=== PATIENT | female | born 1975 | race Caucasian/White ===

== ENCOUNTER → 2017-12-01 | Outpatient (CLI) | payer BC ==
--- NOTE | 2017-12-03 07:05 | MM ---
Reason for exam: screening (asymptomatic). Last mammogram was performed 1 year and 1 month ago. History: Family history of breast cancer in mother at age 59. Took hormonal contraceptives for 13 years. Physical Findings: A clinical breast exam by your physician is recommended on an annual basis and results should be correlated with mammographic findings. MG Screening Mammo w CAD Bilateral CC and MLO view(s) were taken. Prior study comparison: November 14, 2016, bilateral MG screening mammo w CAD. October 26, 2015, bilateral MG screening mammo w CAD. The breast tissue is heterogeneously dense. This may lower the sensitivity of mammography. No significant changes when compared with prior studies. ASSESSMENT: Benign, BI-RAD 2 RECOMMENDATION: Routine screening mammogram of both breasts in 1 year.
== END | disposition home or self-care (01) ==
LOC: RADMAMWWP 16:44
PROVIDERS: ATTEND Obstetrics & Gynecology
DX: Z12.31 Encounter for screening mammogram for malignant neoplasm of breast (principal)
CPT/HCPCS: 77067

== ENCOUNTER → 2018-12-04 | Outpatient (CLI) | payer BC ==
--- NOTE | 2018-12-04 09:47 | US ---
EXAMINATION TYPE: US transvaginal DATE OF EXAM: 12/04/2018 COMPARISON: NONE CLINICAL HISTORY: N92.0 FREQUENT MENSTRUATION. Excessive menstruation; 2 C section deliveries; ; discontinued oral contraceptives approximately 3 months ago TECHNIQUE: Transvaginal (TV) per order. Transabdominal sonographic images of the pelvis were acquir ed. Date of LMP: approximately 11/25/2018 EXAM MEASUREMENTS: Uterus: 7.1 x 4.7 x 4.4 cm Endometrial Stripe: 1.3 cm Right Ovary: 1.6 x 0.7 x 0.9 cm Left Ovary: 3.9 x 3.2 x 2.7 cm 1. Uterus: Anteverted, multiple Nabothian cysts in cervix with largest = 0.7 x 0.6 x 0.6cm; right my ometrial cyst = 0.4 x 0.3 x 0.3cm; hypoechoic and hyperechoic, oval area seen near right myometrial c yst =0.6 x 0.7 x 1.0cm. 2. Endometrium: irregular borders; upper endometrial cyst seen = 0.2 x 0.3 x 0.2cm 3. Right Ovary: small follicle seen, ovary located upper and laterally 4. Left Ovary: multiple follicles seen with largest complex (internal striations) = 1.6 x 2.6 x 2.1c m Color doppler imaging shows good arterial and venous flow within the ovaries; there is no evidence fo r ovarian torsion. 5. Bilateral Adnexa: wnl 6. Posterior cul-de-sac: wnl IMPRESSION: 1. Abnormally thickened endometrium with irregular borders. Considerations are for endometrial mass, endometrial polyp and endometrial hyperplasia. Direct visualization with sonohysterogram or endoscopy would be recommended. Additionally there is a heterogenous region of the anterior mid body myometriu m impressing on the endometrium. Considerations for this lesion are for leiomyoma, adenomyosis, or ex tension from an endometrial lesion. 2. Minimally complex left ovarian follicles likely involuting hemorrhagic cyst with a lacelike event marketing intern al echotexture.
== END | disposition home or self-care (01) ==
LOC: RADUSWWP 08:12
PROVIDERS: ATTEND Family Medicine
DX: N85.00 Endometrial hyperplasia, unspecified (principal); R93.89 Abnormal findings on diagnostic imaging of other specified body structures
CPT/HCPCS: 76830

== ENCOUNTER → 2018-12-28 | Outpatient (CLI) | payer BC ==
--- NOTE | 2018-12-30 12:05 | MM ---
Reason for exam: screening (asymptomatic). Last mammogram was performed 1 year and 1 month ago. History: Family history of breast cancer in mother at age 59. Took hormonal contraceptives for 13 years. Physical Findings: A clinical breast exam by your physician is recommended on an annual basis and results should be correlated with mammographic findings. MG Screening Mammo w CAD Bilateral CC and MLO view(s) were taken. Prior study comparison: December 01, 2017, bilateral MG screening mammo w CAD. November 14, 2016, bilateral MG screening mammo w CAD. The breast tissue is heterogeneously dense. This may lower the sensitivity of mammography. Focal asymmetry right upper MLO view, stable. No significant changes when compared with prior studies. ASSESSMENT: Benign, BI-RAD 2 RECOMMENDATION: Routine screening mammogram of both breasts in 1 year.
== END | disposition home or self-care (01) ==
LOC: RADMAMWWP 16:34
PROVIDERS: ATTEND Family Medicine
DX: Z12.31 Encounter for screening mammogram for malignant neoplasm of breast (principal)
CPT/HCPCS: 77067

== ENCOUNTER → 2019-01-21 | Outpatient (CLI) | payer BC ==
[2019-01-21 10:17] LABS: Basophils # (A) 0.1 k/uL (0-0.2); Basophils % (A) 1 %; Eosinophils # (A) 0.2 k/uL (0-0.7); Eosinophils % (A) 4 %; HCT 40.6 % (34.0-46.0); HGB 13.3 gm/dL (11.4-16.0); Lymphocytes # (A) 1.5 k/uL (1.0-4.8); Lymphocytes % (A) 29 %; MCH 32.4 pg (25.0-35.0); MCHC 32.8 g/dL (31.0-37.0); MCV 98.9 fL (80.0-100.0); Mean Platelet Volume 7.1; Monocytes # (A) 0.3 k/uL (0-1.0); Monocytes % (A) 6 %; Neutrophils # (A) 2.9 k/uL (1.3-7.7); Neutrophils % (A) 57 %; Platelet Count 271 k/uL (150-450); RBC 4.11 m/uL (3.80-5.40); RDW 12.5 % (11.5-15.5)
== END ==
LOC: LABPAT 09:08
PROVIDERS: ATTEND Obstetrics & Gynecology Obstetrics
DX: Z01.812 Encounter for preprocedural laboratory examination (principal); N92.0 Excessive and frequent menstruation with regular cycle; N94.6 Dysmenorrhea, unspecified
CPT/HCPCS: 36415; 85025

== ENCOUNTER 2019-02-02 06:32 | Day surgery (SDC) | payer BC ==
[2019-01-28 16:13] VITALS: BMI 27.8
--- NOTE | 2019-01-29 13:46 | P.HPIHPCON ---
History of Present Illness H&P Date: 01/29/19 Chief Complaint: menorrhagia This is a 43 yo that presents with c/o heavy menstrual bleeding. menses are regular q 28 days with a heavy flow that has gotten worse over the last 6 months. she notes dysmenorrhea with her menses in addition. she has tried management with ocps in the past but has been unable to remember to take them and desires EA. EMB done in the office, normal pathology, 8 cm uterus. Consent for Procedure: I have explained the operation/procedure to the patient, including the risks, benefits, side effects, alternative therapies (including not receiving the proposed treatment or service), the likelihood of the patient achieving his/her goals, and potential recuperation problems for the procedure/sedation/analgesia, as well as any blood products, if indicated. I also explained to the patient the risks, benefits and side effects of the alternatives, as well as the risks related to not receiving the proposed procedure, care, treatment, or services. - Constitutional Constitutional: Reports fatigue, Denies chills, Denies fever, Denies lethargy - EENT Ears, nose, mouth and throat: Denies headache - Cardiovascular Cardiovascular: Denies edema - Respiratory Respiratory: Denies cough, Denies dyspnea - Gastrointestinal Gastrointestinal: Denies constipation, Denies diarrhea, Denies nausea, Denies vomiting - Genitourinary (Female) Genitourinary: Reports Past Medical History Past Medical History: No Reported History Additional Past Medical History / Comment(s): VARICOSE VEINS. SEVERE DORCAS ENSTRUAL CRAMPS, HEAVY MENSES; FEELS BLOATED OCC. History of Any Multi-Drug Resistant Organisms: None Reported Past Surgical History: Section, Tubal Ligation Additional Past Surgical History / Comment(s): C-S X2. Deviated septum. Past Anesthesia/Blood Transfusion Reactions: No Reported Reaction Smoking Status: Current some day smoker - Past Family History Mother Family Medical History: Cancer Additional Family Medical History / Comment(s): METS BREAST CA Medications and Allergies Home Medications Medication Instructions Recorded Confirmed Type Acetaminophen [Tylenol 8 Hour] 650 mg PO DIRECTED PRN 01/28/19 01/28/19 History Allergies Allergy/AdvReac Type Severity Reaction Status Date / Time sulfamethoxazole Allergy Unknown Verified 01/28/19 15:46 [From Bactrim] trimethoprim [From Bactrim] Allergy Unknown Verified 01/28/19 15:46 Surgical - Exam Osteopathic Statement: *. No significant issues noted on an osteopathic structural exam other than those noted in the History and Physical/Consult. - General well developed, well nourished, no distress - Eyes PERRL - Neck no masses, trachea midline - Respiratory clear to auscultation - Cardiovascular Rhythm: regular - Abdomen Abdomen: non tender - Genitourinary uterus normal size and mobile normal external genitalia, normal perineum Assessment and Plan (1) Menorrhagia Status: Acute Code(s): N92.0 - EXCESSIVE AND FREQUENT MENSTRUATION WITH REGULAR CYCLE SNOMED Code(s): 576764278 (2) Dysmenorrhea Status: Acute Code(s): N94.6 - DYSMENORRHEA, UNSPECIFIED SNOMED Code(s): 719790232 Plan: will plan H LA EA. infomration given to pt and all questions answered. procedure is reviewed along with risks of surgery including but not limited to infection bleeding uterine perforation and possible need for hsyterecotmy in the future due to failure of this procedure. informed consnet obtained.
[~2019-02-02 06:32] MED LIST: DEXAMETHASONE SOD PHOSPHATE 10 MG/ML 1 ML VIAL IV ONE; LACTATED RINGERS 1,000 ML IV SCH; ONDANSETRON 4 MG/2 ML VIAL IVP ONE; Pre Op ABX Message 1 EACH MISC MISCELLANE ONE
[2019-02-02] MEDS ORDERED: LIDOCAINE 1% 20 ML VIAL (10MG/ML) FOR IV START INTRADERMA ONE (06:58)
[2019-02-02] MEDS ORDERED: PROPOFOL 10 MG/ML 20 ML VIAL IV ONE (07:34)
[2019-02-02] MEDS ORDERED: LIDOCAINE 1% INJ 10MG/ML (20 ML MDV) ONE (07:34)
[2019-02-02] MEDS ORDERED: fentaNYL (PF) 50 MCG/ML 2 ML AMP ONE (07:34)
[2019-02-02] MEDS ORDERED: MIDAZOLAM 2 MG/2 ML VIAL ONE (07:34)
[2019-02-02] MEDS ORDERED: KETOROLAC 30 MG/ML 1 ML VIAL ONE (07:34)
--- NOTE | 2019-02-02 08:05 | P.OP ---
Date of Procedure: 02/02/19 Preoperative Diagnosis: Menorrhagia, dysmenorrhea Postoperative Diagnosis: Same Procedure(s) Performed: Hysteroscopy, dilation and curettage, endometrial ablation Anesthesia: MAC Surgeon: Inez Giles Estimated Blood Loss (ml): 5 IV fluids (ml): 500 Urine output (ml): 50 Pathology: other (Endometrial curettings) Condition: stable Disposition: PACU Indications for Procedure: Heavy menstrual bleeding Operative Findings: Normal endometrial cavity Description of Procedure: Patient was seen in the preoperative suite and procedure was reviewed questions were answered and patient wished to proceed. Patient was taken operating suite where general anesthesia was obtained without difficulty by the anesthesia department. She was prepped and draped in normal sterile fashion in the dorsal lithotomy position. A Dickinson catheter was then used to drain the bladder of approximately 50 mL of a weighted speculum posterior vaginal vault the interval cervix is visualized and grasped with a single-tooth tenaculum. Endocervical canal was then dilated to 15-Lao hysteroscope was placed through the cervix and toward the endometrial cavity and normal cavity was appreciated. Pictures were taken and the hysteroscope was removed. A sharp curettage was then performed until gritty texture was noted in all 4 quadrants of the endometrial cavity. This was then sent to pathology for analysis. At this time the NovaSure device was opened and set to the appropriate measurements uterine length of 4 with a 3.1 once the device passed the cavity assessment was allowed to cycle for a total time of 97 seconds with a power of 68. Afterwards the device was removed without difficulty the single-tooth tenaculum was taken off of the anterior lip of the cervix hemostasis was appreciated. All counts were correct 2 patient tolerated procedure well and was taken to the recovery room awake and in stable condition
[2019-02-02 08:10] VITALS: TEMP 97.6
[2019-02-02 08:22] VITALS: RESP 16
[2019-02-02] MEDS: HYDROmorphone 0.5 MG/0.5 ML SYRINGE IVP PRN ×2 (08:22→08:40)
[2019-02-02 09:22] VITALS: BP 124/83; PULSE 81
== END 2019-02-02 09:37 | disposition home or self-care (01) ==
LOC: OR 06:32
PROVIDERS: ATTEND Obstetrics & Gynecology Obstetrics
DX: N92.0 Excessive and frequent menstruation with regular cycle (principal); N94.6 Dysmenorrhea, unspecified; F17.200 Nicotine dependence, unspecified, uncomplicated; I83.90 Asymptomatic varicose veins of unspecified lower extremity; K21.9 Gastro-esophageal reflux disease without esophagitis; Z80.3 Family history of malignant neoplasm of breast; Z88.2 Allergy status to sulfonamides
CPT/HCPCS: 81025; 88305; 58563; J2250; J1100; J2405; J2001; J3010; J1885; J2704; J1170

== ENCOUNTER → 2019-12-31 | Outpatient (CLI) | payer BC ==
--- NOTE | 2020-01-03 09:24 | MM ---
Reason for exam: screening (asymptomatic). Last mammogram was performed 1 year ago. History: Family history of breast cancer in mother at age 59. Took hormonal contraceptives for 13 years. Physical Findings: A clinical breast exam by your physician is recommended on an annual basis and results should be correlated with mammographic findings. MG Screening Mammo w CAD Bilateral CC and MLO view(s) were taken. XCCL view(s) were taken of the right breast. Prior study comparison: December 28, 2018, bilateral MG screening mammo w CAD. December 01, 2017, bilateral MG screening mammo w CAD. The breast tissue is heterogeneously dense. This may lower the sensitivity of mammography. No suspicious abnormality. No significant changes when compared with prior studies. ASSESSMENT: Negative, BI-RAD 1 RECOMMENDATION: Routine screening mammogram of both breasts in 1 year.
== END | disposition home or self-care (01) ==
LOC: RADMAMWWP 09:56
PROVIDERS: ATTEND Obstetrics & Gynecology Obstetrics
DX: Z12.31 Encounter for screening mammogram for malignant neoplasm of breast (principal)
CPT/HCPCS: 77067

== ENCOUNTER → 2020-08-01 | Outpatient (CLI) | payer BC ==
[2020-08-01 08:39] LABS: Basophils # (A) 0.1 k/uL (0-0.2); Basophils % (A) 2 %; Eosinophils # (A) 0.2 k/uL (0-0.7); Eosinophils % (A) 3 %; HCT 40.3 % (34.0-46.0); HGB 13.2 gm/dL (11.4-16.0); Lymphocytes # (A) 1.8 k/uL (1.0-4.8); Lymphocytes % (A) 27 %; MCH 33.4 pg (25.0-35.0); MCHC 32.8 g/dL (31.0-37.0); MCV 101.8 fL (80.0-100.0); Macrocytosis Slight; Mean Platelet Volume 7.2; Monocytes # (A) 0.3 k/uL (0-1.0); Monocytes % (A) 4 %; Neutrophils # (A) 4.2 k/uL (1.3-7.7); Neutrophils % (A) 62 %; Platelet Count 294 k/uL (150-450); RBC 3.96 m/uL (3.80-5.40); RDW 12.7 % (11.5-15.5); WBC 6.7 k/uL (3.8-10.6)
[2020-08-01 08:53] LABS: African American GFR (CKD) >90 (>60 ml/min/1.73 sqM); Anion Gap 8 mmol/L; Blood Urea Nitrogen 19 mg/dL (7-17); Carbon Dioxide 26 mmol/L (22-30); Chloride 105 mmol/L (98-107); Glucose 80 mg/dL (74-99); Non-African American GFR(CKD) 84 (>60 ml/min/1.73 sqM); Potassium 4.6 mmol/L (3.5-5.1); Sodium 139 mmol/L (137-145)
== END | disposition home or self-care (01) ==
LOC: LABPAT 07:38
PROVIDERS: ATTEND Obstetrics & Gynecology Obstetrics
DX: Z01.818 Encounter for other preprocedural examination (principal); N94.6 Dysmenorrhea, unspecified
CPT/HCPCS: 36415; 80051; 82565; 82947; 84520; 85025; 86850; 86900; 86901; 87086

== ENCOUNTER 2020-08-07 07:23 | Day surgery (SDC) | payer BC ==
[2020-08-02 11:00] VITALS: BMI 28.3
--- NOTE | 2020-08-03 12:58 | HP ---
HISTORY AND PHYSICAL DATE OF SURGERY: 08/07/2020 HISTORY OF PRESENT ILLNESS: This is a pleasant 44-year-old 2, para 2-0-0-2 that presents with complaints of increasing pelvic pain and cramping, status post endometrial ablation. The patient states her menstrual cycles have been blight since the endometrial ablation, but she has noted increased cramping. Her menstrual cycles do occur every 28-30 days, lasting 1- 2 days and are light without clots. She does experience dysmenorrhea throughout her cycle. The patient did have an ultrasound completed here in the office which revealed a normal uterine size and findings of hematometra, endometrial polyp. Normal adnexa were appreciated. PAST MEDICAL HISTORY: Significant for obesity and menorrhagia. The patient does have a history of chronic UTIs. PAST SURGICAL HISTORY: Significant for a , deviated septum repair. ALLERGIES: Allergic to BACTRIM. FAMILY MEDICAL HISTORY: Noncontributory. REPRODUCTIVE HISTORY: She is a 2, para 2, as stated above. She has had a tubal ligation in the past. The patient is a current smoker with occasional alcohol use. REVIEW OF SYSTEMS: She denies fevers, chills, nausea, vomiting. Denies urinary urgency or incontinence. She denies menorrhagia, she does admit to dysmenorrhea, worsening since endometrial ablation was completed. Vital signs were noted to be stable. PHYSICAL EXAM: She is a well-nourished, well-developed, alert female in no acute distress, breathing is noted to be nonlabored, heart has a regular rate and rhythm. Her abdomen is soft and nontender. Genitourinary: Her external genitalia is normal for age with no inflammatory lesions present. Vaginal tissues noted to be pink and well rugated with no masses, bladder is nontender, urethral meatus is normal in nature, cervix appears healthy with no lesions and is nontender. Uterus is nontender to palpation. It is midline and mobile, no adnexal masses are appreciated. ASSESSMENT: 1. Failed endometrial ablation. 2. Hematometra, pelvic pain, dysmenorrhea. PLAN: Is robotic assisted vaginal hysterectomy with ovarian conservation, diagnostic cystoscopy. Possible BSO should that be deemed necessary during the procedure. Patient is counseled on risks of surgery including, but not limited to infection, bleeding, damage to bladder, bowel, ureteric injury. The patient states understanding of these risks and wishes to proceed. Patient was given an ACOG pamphlet to review and denied questions. Patient wishes to proceed with surgery. MMODL / IJN: [id number] /
[~2020-08-07 07:23] MED LIST changes: +HYDROmorphone 0.5 MG/0.5 ML SYRINGE IVP PRN; -LACTATED RINGERS 1,000 ML IV SCH; -Pre Op ABX Message 1 EACH MISC MISCELLANE ONE
[2020-08-07] MEDS: LACTATED RINGERS 1,000 ML IV SCH ×2 (08:10→19:54)
[2020-08-07] MEDS ORDERED: LIDOCAINE 1% (10MG/ML) FOR IV START INTRADERMA ONE (08:10)
[2020-08-07] MEDS ORDERED: fentaNYL (PF) 50 MCG/ML 2 ML AMP ONE (08:52)
[2020-08-07] MEDS ORDERED: PROPOFOL 10 MG/ML 20 ML VIAL IV ONE (08:52)
[2020-08-07] MEDS ORDERED: LIDOCAINE 1% INJ 10MG/ML (20 ML MDV) ONE (08:52)
[2020-08-07] MEDS ORDERED: GLYCOPYRROLATE 0.2 MG/ML 2 ML VIAL ONE (08:52)
[2020-08-07] MEDS ORDERED: ROCURONIUM BROMIDE 10 MG/ML 5 ML VIAL IV ONE (08:52)
[2020-08-07] MEDS ORDERED: KETOROLAC 15 MG/ML 1 ML VIAL ONE (08:52)
[2020-08-07] MEDS ORDERED: NEOSTIGMINE 1 MG/ML 10 ML VIAL ONE (08:52)
[2020-08-07] MEDS ORDERED: MIDAZOLAM 2 MG/2 ML VIAL ONE (08:52)
[2020-08-07] MEDS ORDERED: SUCCINYLCHOLINE CHLORIDE 100 MG/5 ML SYR IV ONE (08:52)
[2020-08-07] MEDS ORDERED: BUPIVACAINE (PF) 0.25% 30 ML VIAL SQ ONE ×2 (08:59→10:32)
[2020-08-07] MEDS ORDERED: LACTATED RINGERS 1,000 ML IV ONE (09:40)
[2020-08-07] MEDS ORDERED: SIMETHICONE 80 MG CHEWABLE PO PRN (10:28)
[2020-08-07] MEDS ORDERED: Acetaminophen-Codeine 300-30mg TAB PO PRN (10:28)
[2020-08-07] MEDS ORDERED: ACETAMINOPHEN IV (For NPO) 1,000 MG in EMPTY BAG 1 BAG IVPB STA (10:31)
--- NOTE | 2020-08-07 10:37 | P.OP ---
Date of Procedure: 08/07/20 Preoperative Diagnosis: Menometrorrhagia Pelvic pain Dysmenorrhea Failed endometrial ablation Postoperative Diagnosis: same Procedure(s) Performed: Robotic-assisted vaginal hysterectomy, bilateral salpingectomy, diagnostic cystoscopy Anesthesia: ISABELLA Surgeon: Inez Giles Family Service Aide #1: Miko Taylor Estimated Blood Loss (ml): 25 IV fluids (ml): 800 Urine output (ml): 50 Pathology: other (Uterus cervix bilateral fallopian tubes) Condition: stable Disposition: PACU Indications for Procedure: This 44-year-old 2 para 2 presented with increasing pain status post endometrial ablation. Patient states the pain is cyclic in nature. Ultrasound was performed with diagnosis of menometrorrhagia options were reviewed patient elected definitive treatment with hysterectomy. Operative Findings: Globular uterus normal ovaries bilaterally. Normal pelvic anatomy Description of Procedure: Patient is taken back to the operating suite and general anesthesia was obtained without difficulty by the anesthesia department. She is prepped and draped in the normal sterile fashion in the dorsal lithotomy position. A Batista catheter was then placed under sterile technique. A weighted speculum was placed in the posterior vaginal vault, the anterior lip of the cervix is visualized and grasped with a single-tooth tenaculum. The endocervical canal was then dilated and V care uterine manipulator was advanced into the uterus as a means to manipulate the uterus throughout the procedure. All inserts were then removed from the vaginal vault after the cervical cap was placed snugly against the cervix. Attention was then turned the patient's abdomen where approximately 2 finger breaths above the umbilicus a small skin incision is made. Through this incision the Veress needle is placed. Once the Veress needle was deemed to be in the proper position with a drop of CO2 pressure CO2 insufflation was allowed to occur. At this time an 8 mm trocar and sleeve is placed under direct visualization. The additional port sites are then placed at the usual sites at 10 cm lateral and 3 cm inferior to midline port these are 8 mm ports and operative reports through the da Bri. In the left upper quadrant a 12 mm trocar and sleeve is placed under direct visualization. The da Bri robot is undocked in usual fashion. The operative arms are then placed. In the right operative arm the monopolar scissors is placed in the left operative arm the bipolar forceps is placed. Attention then turned to the patient's left fallopian tube which was grasped coagulated and transected. This continued toward the uterine ovarian ligament. The uterine ovarian ligament was coagulated distally and proximal plane divided. This continued through the broad and toward the round. The round ligament was coagulated distally and proximally divided. The bladder flap from the left was then created using sharp and blunt dissection. Attention was then turned to the right fallopian tube which was grasped, elevated and coagulated. This was transected hemostasis was appreciated. This continued through the uterine ovarian ligament uterine ovarian ligament was then visualized coagulated distally proximal plane divided this was then continued through the broad. The round ligament was then visualized thank regular distally and proximally and divided. The bladder flap from the right was then created using sharp and blunt dissection. At this time a Ray-Nahun was introduced into the abdomen to further dissect the bladder bluntly away from the operating field. Ray-Nahun was then removed. At this time the descending branch the uterine artery from the right was visualized coagulated distally proximal plane divided. This was then repeated on the left. Hemostasis was appreciated. At this time the only remaining attachment was a vaginal attachment therefore colpotomy incision was made in circumferential fashion. The uterus and bilateral fallopian tubes of then delivered through the vaginal opening. The pelvis was then copiously irrigated. The vaginal cuff was then closed with 0 Vicryl in a [id number] fashion 4. Hemostasis was appreciated. At this time all inserts were removed and attention was then turned the patient's Batista catheter. The Batista catheter was removed without difficulty and a cystoscopy was performed. The cystoscope through the urethra and toward the bladder bladder bubbles noted a complete survey of the bladder revealed normal mucosa. Both ureteral orifices were noted to be spilling clear yellow urine. The cys toscopy fluid and cystoscope are removed. The Batista catheter was replaced. Attention was then turned the patient's abdomen where the epidural but had been undocked and instruments removed. The skin incisions were closed with 4-0 Vicryl in a subarticular fashion. Steri-Strips and sterile dressings were applied as needed. All counts were noted to be correct 2, patient tolerated procedure well.
[2020-08-07] MEDS: Acetaminophen-Codeine 300-30mg TAB PO PRN ×2 (16:32→22:35)
[2020-08-07] MEDS: IBUPROFEN 600 MG TAB PO PRN (19:41)
[2020-08-07] MEDS: SENNOSIDES-DOCUSATE SODIUM 1 EACH TAB PO SCH (19:45)
[2020-08-08] MEDS: IBUPROFEN 600 MG TAB PO PRN (02:28)
[2020-08-08] MEDS: Acetaminophen-Codeine 300-30mg TAB PO PRN (07:40)
[2020-08-08] MEDS: SENNOSIDES-DOCUSATE SODIUM 1 EACH TAB PO SCH (07:41)
[2020-08-08 07:56] VITALS: BP 101/61; PULSE 89; RESP 16; TEMP 97.7
[2020-08-08 08:07] LABS: Basophils % (A) 1 %; Eosinophils # (A) 0.1 k/uL (0-0.7); Eosinophils % (A) 1 %; HCT 36.5 % (34.0-46.0); HGB 11.9 gm/dL (11.4-16.0); Lymphocytes # (A) 1.5 k/uL (1.0-4.8); Lymphocytes % (A) 18 %; MCH 33.6 pg (25.0-35.0); MCHC 32.6 g/dL (31.0-37.0); MCV 103.1 fL (80.0-100.0); Macrocytosis Slight; Mean Platelet Volume 7.8; Monocytes # (A) 0.3 k/uL (0-1.0); Monocytes % (A) 3 %; Neutrophils # (A) 6.5 k/uL (1.3-7.7); Neutrophils % (A) 77 %; Platelet Count 267 k/uL (150-450); RBC 3.54 m/uL (3.80-5.40); RDW 12.6 % (11.5-15.5); WBC 8.4 k/uL (3.8-10.6)
--- NOTE | 2020-08-08 08:21 | P.DS ---
Providers Date of admission: 08/07/2020 Expected date of discharge: 08/08/20 Attending physician: Inez Giles Primary care physician: Ranjith Barnes - Discharge Diagnosis(es) (1) Hematometra Current Visit: Yes Status: Acute (2) Pelvic pain Current Visit: Yes Status: Acute (3) Dysmenorrhea Current Visit: No Status: Acute Hospital Course: this is a 44-year-old 2 para 2 that presented to the hospital yesterday and 08/07 for scheduled robotic cyst vaginal hysterectomy secondary to failed ablation, hematometra, pelvic pain and dysmenorrhea. Patient was counseled on risks to surgery prior to surgery including but limited to infection, bleeding, damage to bladder, bowel, ureteric injury. Patient history of 2 prior C- sections therefore special counseling was given regarding bladder injury. patient was taken back to the operating room and surgery was completed without difficulty. For further details on the procedure please see the operative report. Patient's postoperative course has been uneventful. On this postoperative day #1 she is ambulating and voiding without difficulty. She is tolerating a regular diet without nausea or vomiting. She denies vaginal bleeding. She states her pain is well-controlled with oral ibuprofen and Tylenol No. 3. Patient Condition at Discharge: Good Plan - Discharge Summary Discharge Rx Participant: No New Discharge Prescriptions: No Action No Known Home Medications Discharge Medication List No Known Home Medications 08/02/20 [History] Follow up Appointment(s)/Referral(s): Inez Giles DO [Doctor of Osteopathic Medicine] - 2 Weeks Patient Instructions/Handouts: Laparoscopic Hysterectomy (DC), Laparoscopic Hysterectomy (GEN), Hysterectomy (GEN) Activity/Diet/Wound Care/Special Instructions: vaginal bleeding, spotting occur after hysterectomy. Patient states understanding. Patient is to continue with [id number] ibuprofen 600 mg as needed, and Tylenol No. 3 for breakthrough pain. Patient is counseled on the need for stool softeners in addition, 2 senna/S at bedtime. Discharge Disposition: HOME SELF-CARE
== END 2020-08-08 10:45 | disposition home or self-care (01) ==
LOC: OR 07:23 → 4FBP 10:42 → OR 08-08 10:45
PROVIDERS: ATTEND Obstetrics & Gynecology Obstetrics
DX: N80.0 Endometriosis of uterus (principal); E66.9 Obesity, unspecified; Z88.2 Allergy status to sulfonamides; Z87.440 Personal history of urinary (tract) infections; Z98.51 Tubal ligation status; Z98.890 Other specified postprocedural states; Z68.28 Body mass index [BMI] 28.0-28.9, adult
CPT/HCPCS: 58571; 81025; 85025; 88307; J2250; J1100; J2710; J0690; J2405; J2001; J3010; J0131; J1885; J0330; J2704; J1170; 86850; 86900; 86901

== ENCOUNTER → 2021-03-30 | Outpatient (CLI) | payer BC ==
--- NOTE | 2021-04-02 10:18 | MM ---
Reason for exam: screening (asymptomatic). Last mammogram was performed 1 year and 3 months ago. History: Family history of breast cancer in mother at age 59. Took hormonal contraceptives for 13 years. Physical Findings: A clinical breast exam by your physician is recommended on an annual basis and results should be correlated with mammographic findings. MG 3D Screening Mammo W/Cad Bilateral CC and MLO view(s) were taken. Prior study comparison: December 31, 2019, bilateral MG screening mammo w CAD. December 28, 2018, bilateral MG screening mammo w CAD. The breast tissue is heterogeneously dense. This may lower the sensitivity of mammography. No significant changes when compared with prior studies. ASSESSMENT: Benign, BI-RAD 2 RECOMMENDATION: Routine screening mammogram of both breasts in 1 year.
== END | disposition home or self-care (01) ==
LOC: RADMAMWWP 11:54
PROVIDERS: ATTEND Obstetrics & Gynecology Obstetrics
DX: Z12.31 Encounter for screening mammogram for malignant neoplasm of breast (principal); Z80.3 Family history of malignant neoplasm of breast
CPT/HCPCS: 77063; 77067

== ENCOUNTER → 2022-04-03 | Outpatient (CLI) | payer BC ==
--- NOTE | 2022-04-05 12:59 | MM ---
Reason for exam: screening (asymptomatic). Last mammogram was performed 1 year ago. History: Family history of breast cancer in mother at age 59. Took hormonal contraceptives for 13 years. Physical Findings: A clinical breast exam by your physician is recommended on an annual basis and results should be correlated with mammographic findings. MG 3D Screening Mammo W/Cad Bilateral CC and MLO view(s) were taken. Prior study comparison: March 30, 2021, bilateral MG 3d screening mammo w/cad. December 31, 2019, bilateral MG screening mammo w CAD. The breast tissue is heterogeneously dense. This may lower the sensitivity of mammography. Lobulated central asymmetric density left MLO view. ASSESSMENT: Incomplete: need additional imaging evaluation, BI-RAD 0 RECOMMENDATION: Special view mammogram of the left breast. (3D) If lesion persists on supplemental views, image directed ultrasound is recommended. [facility] will attempt to contact patient to return for supplemental views and ultrasound if indicated.
== END | disposition home or self-care (01) ==
LOC: RADMAMWWP 16:55
PROVIDERS: ATTEND Family Medicine
DX: Z12.31 Encounter for screening mammogram for malignant neoplasm of breast (principal)
CPT/HCPCS: 77063; 77067

== ENCOUNTER → 2022-04-10 | Outpatient (CLI) | payer BC ==
--- NOTE | 2022-04-10 09:37 | MM ---
Reason for Exam: Follow-up at short interval from prior study. Last screening mammogram was performed less than 1 month ago. Patient History: Menarche at age 12. First Full-Term at age 27. Hysterectomy at age 44. Patient used Hormonal Contraceptives for 13 years. Currently . Mother had breast cancer, age 59. Risk Values: Belkis 5 year model risk: 1.8%. NCI Lifetime model risk: 19.6%. Film Views: Left spot compression CC views were taken. Left spot compression MLO views were taken. Left spot compression MLONIP views were taken. Left LM views were taken. Prior Study Comparison: 12/31/2019 Bilateral Screening Mammogram, [facility]. 03/30/2021 Bilateral Screening Mammogram, [facility]. 04/03/2022 Bilateral Screening Mammogram, [facility]. Tissue Density: Left: The breast tissue is heterogeneously dense. This may lower the sensitivity of mammography. Findings: Analyzed By CAD. On compression no persistent nodularity is evident. No suspicious spiculated or lobular masses evident. Overall Assessment: Probably benign, BI-RAD 3 Management: Diagnostic Mammogram of both breasts in 6 months. A clinical breast exam by your physician is recommended on an annual basis and results should be correlated with mammographic findings. This exam should not preclude additional follow-up of suspicious palpable abnormalities. Results were given to the patient verbally at the time of exam.
== END | disposition home or self-care (01) ==
LOC: RADMAMWWP 09:00
PROVIDERS: ATTEND Family Medicine
DX: R92.8 Other abnormal and inconclusive findings on diagnostic imaging of breast (principal)
CPT/HCPCS: 77061; 77065

== ENCOUNTER → 2022-10-14 | Outpatient (CLI) | payer BC ==
--- NOTE | 2022-10-14 08:27 | MM ---
Reason for Exam: Follow-up at short interval from prior study. Last screening mammogram was performed 6 month(s) ago. Patient History: Menarche at age 12. First Full-Term at age 27. Hysterectomy at age 44. Perimenopausal. Patient used Hormonal Contraceptives for 13 years. Mother had breast cancer, age 59. Risk Values: Belkis 5 year model risk: 1.8%. NCI Lifetime model risk: 19.3%. Prior Study Comparison: 12/01/2017 Bilateral Screening Mammogram, [facility]. 12/28/2018 Bilateral Screening Mammogram, [facility]. 12/31/2019 Bilateral Screening Mammogram, [facility]. 03/30/2021 Bilateral Screening Mammogram, [facility]. 04/03/2022 Bilateral Screening Mammogram, [facility]. 04/10/2022 Left MG 3D work up w/cad LT, [facility]. Tissue Density: The breast tissue is heterogeneously dense. This may lower the sensitivity of mammography. Findings: Analyzed By CAD. Asymmetric density upper right MLO view persists on spot compression imaging. Ultrasound is recommended. No suspicious calcifications are seen within either breast. Overall Assessment: Incomplete: need additional imaging evaluation, BI-RAD 0 Management: Diagnostic Breast Ultrasound of the right breast. A clinical breast exam by your physician is recommended on an annual basis and results should be correlated with mammographic findings. This exam should not preclude additional follow-up of suspicious palpable abnormalities. Results were given to the patient verbally at the time of exam. Electronically signed and approved by: Dusty Cooper M.D. Radiologis
--- NOTE | 2022-10-14 08:31 | USB ---
Patient History: Menarche at age 12. First Full-Term at age 27. Hysterectomy at age 44. Perimenopausal. Patient used Hormonal Contraceptives for 13 years. Mother had breast cancer, age 59. Risk Values: Belkis 5 year model risk: 1.8%. NCI Lifetime model risk: 19.3%. Technique: Method: Targeted. Prior Study Comparison: 03/30/2021 Bilateral Screening Mammogram, [facility]. 04/03/2022 Bilateral Screening Mammogram, [facility]. 04/10/2022 Left MG 3D work up w/cad LT, [facility]. Findings: The upper outer quadrant of the right breast, the upper inner quadrant of the right breast, the axilla of the right breast and the retroareolar of the right breast were scanned. No solid mass identified. Small cyst cluster noted at the 11:00 position measuring 4 mm. Overall Assessment: Probably benign, BI-RAD 3 Management: Diagnostic Mammogram of the right breast in 6 months. A clinical breast exam by your physician is recommended on an annual basis and results should be correlated with mammographic findings. This exam should not preclude additional follow-up of suspicious palpable abnormalities. Results were given to the patient verbally at the time of exam. Electronically signed and approved by: Dusty Cooper M.D. Radiologis
== END | disposition home or self-care (01) ==
LOC: RADMAMWWP 07:05
PROVIDERS: ATTEND Family Medicine
DX: R92.8 Other abnormal and inconclusive findings on diagnostic imaging of breast (principal); Z80.3 Family history of malignant neoplasm of breast
CPT/HCPCS: 77062; 77066

== ENCOUNTER → 2023-04-16 | Outpatient (CLI) | payer BC ==
--- NOTE | 2023-04-16 09:14 | MM ---
Reason for Exam: Follow-up at short interval from prior study. Last screening mammogram was performed 12 month(s) ago. Patient History: Menarche at age 12. First Full-Term at age 27. Hysterectomy at age 44. Perimenopausal. Patient used Hormonal Contraceptives for 13 years. Mother had breast cancer, age 59. Risk Values: Belkis 5 year model risk: 1.8%. NCI Lifetime model risk: 19.3%. Prior Study Comparison: 12/01/2017 Bilateral Screening Mammogram, [facility]. 12/28/2018 Bilateral Screening Mammogram, [facility]. 12/31/2019 Bilateral Screening Mammogram, [facility]. 03/30/2021 Bilateral Screening Mammogram, [facility]. 04/03/2022 Bilateral Screening Mammogram, [facility]. 04/10/2022 Left MG 3D work up w/cad LT, [facility]. 10/14/2022 Bilateral MG 3D diag mammo w/cad [facility], [facility]. Tissue Density: The breast tissue is heterogeneously dense. This may lower the sensitivity of mammography. Findings: Analyzed By CAD. Stable appearing right breast focal asymmetry likely representing clustered cysts seen on ultrasound. No new suspicious masses, calcifications or distortions. Overall Assessment: Benign, BI-RAD 2 Management: Screening Mammogram of both breasts in 1 year. Results were given to the patient verbally at the time of exam. Patient should continue monthly self-breast exams. A clinical breast exam by your physician is recommended on an annual basis. This exam should not preclude additional follow-up of suspicious palpable abnormalities. Note on Belkis scores and lifetime risk: 1. A Belkis score greater than 3% is considered moderate risk. If this is the case, consider specialist referral to assess eligibility for a risk reducing agent. 2. If overall lifetime risk for the development of breast cancer is 20% or higher, the patient may qualify for future screening with alternating mammogram and breast MRI. Electronically signed and approved by: Josiah Monte DO
== END | disposition home or self-care (01) ==
LOC: RADMAMWWP 08:22
PROVIDERS: ATTEND Family Medicine
DX: R92.0 Mammographic microcalcification found on diagnostic imaging of breast (principal); Z80.3 Family history of malignant neoplasm of breast
CPT/HCPCS: 77062; 77066

== ENCOUNTER 2023-10-21 10:44 | Day surgery (SDC) | payer BC ==
[2023-10-15 16:09] VITALS: BMI 24.1
[~2023-10-21 10:44] MED LIST changes: -DEXAMETHASONE SOD PHOSPHATE 10 MG/ML 1 ML VIAL IV ONE; -HYDROmorphone 0.5 MG/0.5 ML SYRINGE IVP PRN; +LACTATED RINGERS 1,000 ML IV SCH; -ONDANSETRON 4 MG/2 ML VIAL IVP ONE
[2023-10-21] MEDS ORDERED: LIDOCAINE 1% (10MG/ML) FOR IV START INTRADERMA ONE (11:31)
[2023-10-21 11:34] VITALS: TEMP 97.6
[2023-10-21] MEDS ORDERED: PROPOFOL 10 MG/ML 20 ML VIAL IV ONE (12:20)
--- NOTE | 2023-10-21 12:30 | P.PCN ---
Date of Procedure: 10/21/23 Procedure(s) Performed: BRIEF HISTORY: Patient is a 48-year-old pleasant white female scheduled for an elective colonoscopy as a part of screening for colon cancer. PROCEDURE PERFORMED: Colonoscopy. PREOPERATIVE DIAGNOSIS: Screening for colon cancer. IV sedation per Anesthesia. PROCEDURE: After informed consent was obtained, the patient, was brought into the endoscopy unit. IV sedation was administered by Anesthesia under continuous monitoring. Digital rectal examination was normal. Initially the Olympus CF-160 flexible video colonoscope was then inserted in the rectum, gradually advanced into the cecum without any difficulty. Careful examination was performed as the scope was gradually being withdrawn. Ileocecal valve and the appendiceal orifice were visualized and appeared normal. Prep was excellent. Mucosa of the cecum, ascending colon, transverse colon, descending colon, sigmoid colon, and rectum appeared normal. Retroflexion was performed in the rectum and no lesions were seen. The patient tolerated the procedure well. IMPRESSION: Normal-appearing colon from rectum to cecum with no evidence of colorectal neoplasia. RECOMMENDATIONS: Findings of this examination were discussed with the patient as well as a family. She was advised to have a repeat screening colonoscopy in 10 years..
[2023-10-21 13:06] VITALS: BP 114/82; PULSE 79; RESP 16
== END 2023-10-21 13:12 | disposition home or self-care (01) ==
LOC: ORWHC2ENDO 10:44
PROVIDERS: ATTEND Internal Medicine Gastroenterology
DX: Z12.11 Encounter for screening for malignant neoplasm of colon (principal); F17.200 Nicotine dependence, unspecified, uncomplicated; Z88.2 Allergy status to sulfonamides
CPT/HCPCS: 45378; J2704

== ENCOUNTER → 2024-05-19 | Outpatient (CLI) | payer BC ==
--- NOTE | 2024-05-20 08:44 | MM ---
Reason for Exam: Screening (asymptomatic). Last mammogram was performed 1 year(s) and 1 month(s) ago. Patient History: Menarche at age 12. First Full-Term at age 27. Hysterectomy at age 44. Perimenopausal. Patient used Hormonal Contraceptives for 13 years. Mother had breast cancer, age 59. Risk Values: Belkis 5 year model risk: 1.9%. NCI Lifetime model risk: 19.1%. Prior Study Comparison: 04/10/2022 Left MG 3D work up w/cad LT, [facility]. 10/14/2022 Bilateral MG 3D diag mammo w/cad [facility], [facility]. 04/16/2023 Bilateral MG 3D diag mammo w/cad [facility], [facility]. Tissue Density: The breasts are heterogeneously dense, which may obscure small masses. Findings: Analyzed By CAD. There is no suspicious group of microcalcifications in either breast. Nodular density upper outer left breast 5.9 cm from the nipple. Additional views are recommended. Overall Assessment: Incomplete: need additional imaging evaluation, BI-RAD 0 Management: Diagnostic Mammogram of the left breast. . Patient should continue monthly self-breast exams. A clinical breast exam by your physician is recommended on an annual basis. This exam should not preclude additional follow-up of suspicious palpable abnormalities. Note on Belkis scores and lifetime risk: 1. A Belkis score greater than 3% is considered moderate risk. If this is the case, consider specialist referral to assess eligibility for a risk reducing agent. 2. If overall lifetime risk for the development of breast cancer is 20% or higher, the patient may qualify for future screening with alternating mammogram and breast MRI. Electronically signed and approved by: Dusty Cooper M.D. Radiologis
== END | disposition home or self-care (01) ==
LOC: RADMAMWWP 16:21
PROVIDERS: ATTEND Obstetrics & Gynecology Obstetrics
DX: Z12.31 Encounter for screening mammogram for malignant neoplasm of breast (principal); Z80.3 Family history of malignant neoplasm of breast
CPT/HCPCS: 77063; 77067

== ENCOUNTER → 2024-05-24 | Outpatient (CLI) | payer BC ==
--- NOTE | 2024-05-24 14:47 | MM ---
Reason for Exam: Additional evaluation requested from abnormal screening. Last screening mammogram was performed less than 1 month ago. Patient History: Menarche at age 12. First Full-Term at age 27. Hysterectomy at age 44. Perimenopausal. Patient used Hormonal Contraceptives for 13 years. Mother had breast cancer, age 59. Risk Values: Belkis 5 year model risk: 1.9%. NCI Lifetime model risk: 19.1%. Prior Study Comparison: 10/14/2022 Bilateral MG 3D diag mammo w/cad [facility]. 04/16/2023 Bilateral MG 3D diag mammo w/cad [facility], [facility]. 05/19/2024 Bilateral MG 3D screening mammo w/cad, [facility]. Tissue Density: Left: The breasts are heterogeneously dense, which may obscure small masses. Findings: Analyzed By CAD. The lateral asymmetric density middle to posterior depth disperses on additional views. Findings compatible with superimposition shadow. Overall Assessment: Benign, BI-RAD 2 Management: Screening Mammogram of both breasts in 1 year. . Results were given to the patient verbally at the time of exam. Patient should continue monthly self-breast exams. A clinical breast exam by your physician is recommended on an annual basis. This exam should not preclude additional follow-up of suspicious palpable abnormalities. Note on Belkis scores and lifetime risk: 1. A Belkis score greater than 3% is considered moderate risk. If this is the case, consider specialist referral to assess eligibility for a risk reducing agent. 2. If overall lifetime risk for the development of breast cancer is 20% or higher, the patient may qualify for future screening with alternating mammogram and breast MRI. Electronically signed and approved by: Marii Bunch M.D. Radiologist
== END | disposition home or self-care (01) ==
LOC: RADMAMWWP 14:13
PROVIDERS: ATTEND Obstetrics & Gynecology Obstetrics
DX: R92.332 Mammographic heterogeneous density, left breast (principal); R92.8 Other abnormal and inconclusive findings on diagnostic imaging of breast
CPT/HCPCS: 77061; 77065